=== PATIENT | male | born 1995 | race Caucasian/White ===

== ENCOUNTER 2022-11-04 10:58 | Emergency (ER) | payer SELFPAY ==
[~2022-11-04] VITALS: Ht 170.2 cm; Wt 95.5 kg
[2022-11-04 11:04] VITALS: TEMP 98.1
[2022-11-04 11:46] LABS: HEMATOCRIT 42.6 % (42.0-52.0); HEMOGLOBIN 14.9 g/dl (13.5-18.0); MEAN CELL VOLUME 88 fl (80.0-100.0); MEAN CORPUSCULAR HEMOGLOBIN 31 pg (27-31); MEAN CORPUSCULAR HGB CONC 35 g/dl (33.0-37.0); MEAN PLATELET VOLUME 9.7 fl (7.4-10.4); PLATELET COUNT 295 K/mm3 (130-400); RED BLOOD COUNT 4.82 M/mm3 (4.20-5.60); REDCELL DISTRIBUTION WIDTH-CV 12.2 % (11.5-14.5)
[2022-11-04 12:10] LABS: BAND 1 % (0-10); LYMPHOCYTE 30 % (20.0-51.0); METAMYELOCYTE 1 % (0-0); NEUTROPHILS 55 % (42.0-75.2); PLATELET ESTIMATE NORMAL (NORMAL)
[2022-11-04 12:18] LABS: ALBUMIN 3.8 gm/dL (3.5-5.0); BILIRUBIN,TOTAL 0.4 mg/dL (0.2-1.2); CALCIUM 9.9 mg/dL (8.4-10.2); CREATININE, serum 0.79 mg/dL (0.72-1.25); POTASSIUM 4.4 mmol/L (3.5-4.5); TOTAL PROTEIN 7.6 gm/dL (6.2-8.1)
[2022-11-04 12:31] LABS: TROPONIN-I 0.011 ng/mL (0.00-0.033)
[2022-11-04] MEDS ORDERED: PREDNISONE20 MG PO (12:53)
[2022-11-04 12:58] VITALS: BP 119/81; PULSE 118
[2022-11-06 09:12] LABS: PATHOLOGY DIFF REVIEW OK +
== END 2022-11-04 13:06 | disposition home or self-care (01) ==
LOC: COL.ER 10:58
PROVIDERS: Nurse Practitioner
DX: R07.81 Pleurodynia (principal); Z28.310 Unvaccinated for COVID-19